=== PATIENT | male | born 1955 | race Caucasian/White ===

== ENCOUNTER 2021-10-30 06:52 | Emergency (ER) | payer BC ==
[~2021-10-30] VITALS: Ht 175.2 cm; Wt 136.1 kg
[~2021-10-30 06:52] MED LIST: ANAPROX DS550 MG PO
[2021-10-30 08:02] LABS: BASO % 0.2 % (0.0-1.0); EOS # 0.1 10*3/uL (0.0-0.4); EOS % 0.6 % (1.0-4.0); HEMATOCRIT 46.6 % (42.0-52.0); LYMPH # 3.6 10*3/uL (1.3-4.4); MEAN CELL VOLUME 88.8 fl (80.0-94.0); MEAN CORPUSCULAR HGB 29.5 pg (27.0-31.0); MEAN CORPUSCULAR HGB CONC 33.3 g/dl (33.0-37.0); MEAN PLATELET VOLUME 10.2 fl (9.6-12.3); MONO # 0.7 10*3/uL (0.1-1.0); MONO % 4.6 % (3.0-9.0); NEUT # 10.5 10*3/uL (2.3-7.9); NEUT % 70.3 % (47.0-73.0); PLATELET COUNT AUTOMATED 151 10*3/uL (130-400); RED BLOOD COUNT 5.25 10*6/uL (4.50-5.90); RED CELL DISTRI WIDTH 13.5 % (0-14.5); WHITE BLOOD COUNT 14.9 10*3/uL (4.8-10.8)
[2021-10-30 08:33] LABS: ALKALINE PHOSPHATASE 49 U/L (45-117); BUN 15 mg/dl (7-24); CHLORIDE 107 mmol/L (98-107); CREATININE 0.97 mg/dL (0.70-1.30); LIPASE 107 U/L (73-393); POTASSIUM 4.1 mmol/L (3.5-5.1); SGOT/AST 17 IU/L (3-35); SGPT/ALT 33 U/L (12-78); SODIUM 138 mmol/L (136-145); TOTAL PROTEIN 7.6 gm/dL (6.4-8.2)
[2021-10-30] MEDS ORDERED: METRONIDAZOLE500 M1 PO (12:28)
[2021-10-30] MEDS ORDERED: CIPRO500 MG PO (12:28)
[2021-10-30] MEDS ORDERED: ONDANSETRON4 MG SL (12:28)
== END 2021-10-30 12:43 | disposition home or self-care (01) ==
LOC: ED 06:52
PROVIDERS: Internal Medicine
DX: K52.9 Noninfective gastroenteritis and colitis, unspecified (principal)